=== PATIENT | male | born 2000 ===

== ENCOUNTER 2023-10-23 12:15 | Emergency (ER) | payer MEDICAID, SELFPAY ==
[2023-10-23 12:15] VITALS: BP 128/69; PULSE 60; RESP 12; TEMP 36.3; O2SAT 99
--- NOTE | 2023-10-23 12:31 | ED.GENADULT ---
HPI - General Adult General Stated complaint: dui kit Time Seen by Provider: 10/23/23 12:28 Source: patient and RN notes reviewed Mode of arrival: ambulatory Limitations: no limitations History of Present Illness HPI narrative: patient brought in by local authorities for DUI testing including blood and urine. No other complaints at this time. MD complaint: Encounter for police requested DUI Onset (ago): hour(s) (1) Relieving factors: none Exacerbating factors: none Associated symptoms: denies other symptoms Treatments prior to arrival: none Review of Systems Review of Systems: All systems reviewed & are unremarkable except as noted in HPI and below Course Vital Signs Vital signs: Vital Signs Temperature 36.3 C L 10/23/23 12:15 Pulse Rate 60 10/23/23 12:15 Respiratory Rate 12 10/23/23 12:15 Blood Pressure 128/69 10/23/23 12:15 Pulse Oximetry 99 10/23/23 12:15 Oxygen Delivery Room Air 10/23/23 12:15 Temperature 36.3 C L 10/23/23 12:15 Pulse Rate 60 10/23/23 12:15 Respiratory Rate 12 10/23/23 12:15 Blood Pressure 128/69 10/23/23 12:15 Pulse Oximetry 99 10/23/23 12:15 Oxygen Delivery Room Air 10/23/23 12:15 Medical Decision Making Vital Signs Vital Signs: Vital Signs Temperature 36.3 C L 10/23/23 12:15 Pulse Rate 60 10/23/23 12:15 Respiratory Rate 12 10/23/23 12:15 Blood Pressure 128/69 10/23/23 12:15 Pulse Oximetry 99 10/23/23 12:15 Oxygen Delivery Room Air 10/23/23 12:15 Temperature 36.3 C L 10/23/23 12:15 Pulse Rate 60 10/23/23 12:15 Respiratory Rate 12 10/23/23 12:15 Blood Pressure 128/69 10/23/23 12:15 Pulse Oximetry 99 10/23/23 12:15 Oxygen Delivery Room Air 10/23/23 12:15 Discharge Plan Discharge Follow-up/Referrals: UNKNOWN,DOCTOR [Primary Care Provider] -
--- NOTE | 2023-10-23 13:12 | PC.NURSE ---
1220 pt arrives handcuffed with [facility] police officers [place] and mauro vasques. hand cuffs removed. officers requesting dui kit collection. pt information : allergy--none, medical history--epilepsy, medications-- lamictal, zonisamide, surgery--n/a. 1230 this program writer applied gloves, RAC cleansed with betadine swab. blood specimen obtained in vacutainer tubes provided per dui kit and labeled at this time. 1240 pt unable to urinate. nothing to drink per officer jem request. 1250 pt unable to urinate, water on in room. 1259 pt urinated dark yellow urine into urinal, urine then placed into specimen bottles provided per dui kit. 1300 dui kit sealed and handed to officer [place]. 1301 pt then handcuffed and departed facility with officer [place] and officer mauro vasques.
--- NOTE | 2023-10-23 13:29 | PC.NURSE ---
NO ER PHYSICIAN EVAL NEEDED.
== END 2023-10-23 13:01 ==
PROVIDERS: Emergency Provider Emergency Medicine
DX: Z53.21 Procedure and treatment not carried out due to patient leaving prior to being seen by health care provider (principal)
CPT/HCPCS: 99199